=== PATIENT | female | born 1965 | race Caucasian/White ===

== ENCOUNTER 2024-08-21 15:38 | Outpatient (CLI) | payer OTHER, SELFPAY ==
--- NOTE | ~2024-08-21 | MM_ITS ---
EXAMINATION: MM screening paco BI w tatum HISTORY: Screening mammogram TECHNIQUE: Craniocaudal and mediolateral oblique 3-D tomosynthesis images were obtained and synthetic 2-D images were generated. CAD analysis was submitted and interpreted. COMPARISON: No prior mammogram is available for comparison at this institution. BREAST PARENCHYMAL COMPOSITION:Not Dense. There are scattered areas of fibroglandular density. FINDINGS: There is 7 mm round mass at the slightly upper, slightly outer left breast. No parenchymal abnormality the right breast. No suspicious microcalcifications. IMPRESSION: 7 mm left breast mass, as above. Spot compression views and ultrasound are recommended for further ev aluation. BI-RADS Category 0: Incomplete: Needs additional imaging evaluation. Reviewed, dictated and finalized at location . IMPRESSION: 7 mm left breast mass, as above. Spot compression views and ultrasound are jnoh mmended for further evaluation. BI-RADS Category 0: Incomplete: Needs additional imaging evaluation.
== END 2024-08-21 15:39 | disposition home or self-care (01) ==
LOC: MICIMG 15:38
PROVIDERS: PCP Family Medicine; Visit Provider Obstetrics & Gynecology
DX: Z12.31 Encounter for screening mammogram for malignant neoplasm of breast (principal)
CPT/HCPCS: 77063; 77067